=== PATIENT | female | born 2000 | race Caucasian/White ===

== ENCOUNTER 2019-09-21 19:13 | Emergency (ER) | payer BC ==
[~2019-09-21] VITALS: Ht 170.2 cm; Wt 72.2 kg
[2019-09-21 19:25] VITALS: BP 124/74
[2019-09-21] MEDS ORDERED: LIDOCAINE 1%/EPI 1:100,000 20 ML VIAL. ONE (19:34)
[2019-09-21] MEDS ORDERED: LIDOCAINE 1%/EPI 1:100,000 20 ML VIAL. IJ ONE (19:45)
--- NOTE | 2019-09-21 20:01 | PHYS DOC ---
Past History Past Medical History: No Pertinent History Past Surgical History: No Surgical History Alcohol Use: Occasionally Adult General Chief Complaint Chief Complaint: LACERATION/AVULSION HPI HPI 19-year-old female presents with left wrist laceration. The patient was cutting open with a knife when the knife slipped and she lacerated her left wrist p roximal to the anatomical snuffbox. It is about a 4 cm laceration. It is linear. Bleeding is controlled. Patient denies any other injuries. She has no difficulty with range of motion. She has full feeling distal to the wound. Her tetanus shot was updated 1 year ago. Review of Systems Review of Systems Constitutional: Denies fever or chills [] Eyes: Denies change in visual acuity, redness, or eye pain [] HENT: Denies nasal congestion or sore throat [] Respiratory: Denies cough or shortness of breath [] Cardiovascular: No additional information not addressed in HPI [] GI: Denies abdominal pain, nausea, vomiting, bloody stools or diarrhea [] : Denies dysuria or hematuria [] Musculoskeletal: Denies back pain or joint pain [] Integument: Laceration left wrist[] Neurologic: Denies headache, focal weakness or sensory changes [] Endocrine: Denies polyuria or polydipsia [] All other systems were reviewed and found to be within normal limits, except as documented in this note. Current Medications Current Medications Current Medications Medications (Trade) Dose Ordered Sig/Rai Start Time Stop Time Status Last Admin Dose Admin Lidocaine/ Epinephrine (Xylocaine 1%-Epi 1:100,000) 20 ml STK-MED ONCE 09/21/19 19:34 09/21/19 19:35 DC Allergies Allergies Allergies Coded Allergies Type Severity Reaction Last Updated Verified No Known Allergies Allergy Unknown 09/21/19 Yes Physical Exam Physical Exam Constitutional: Well developed, well nourished, no acute distress, non-toxic appearance. [] HENT: Normocephalic, atraumatic, bilateral external ears normal, oropharynx moist, no oral exudates, nose normal. [] Eyes: PERRLA, EOMI, conjunctiva normal, no discharge. [] Neck: Normal range of motion, no tenderness, supple, no stridor. [] Cardiovascular:Heart rate regular rhythm, no murmur [] Lungs & Thorax: Bilateral breath sounds clear to auscultation [] Abdomen: Bowel sounds normal, soft, no tenderness, no masses, no pulsatile masses. [] Skin: 4 cm linear laceration of the left wrist, neurovascularly intact distally, normal range of motion and sensation.[] Back: No tenderness, no CVA tenderness. [] Extremities: No tenderness, no cyanosis, no clubbing, ROM intact, no edema. [] Neurologic: Alert and oriented X 3, normal motor function, normal sensory function, no focal deficits noted. [] Psychologic: Affect normal, judgement normal, mood normal. [] Current Patient Data Vital Signs Vital Signs Date Time Temp Pulse Resp B/P (MAP) Pulse Ox O2 Delivery O2 Flow Rate FiO2 09/21/19 19:25 97.9 71 18 124/74 (91) 99 Room Air EKG EKG [] Radiology/Procedures Radiology/Procedures [] Course & Med Decision Making Course & Med Decision Making Pertinent Labs and Imaging studies reviewed. (See chart for details) The patient had a superficial laceration. It was a work. Sutures. See note below for details. The patient's tetanus is up-to-date. She is stable for discharge at this time. [] Dragon Disclaimer Dragon Disclaimer This electronic medical record was generated, in whole or in part, using a voice recognition dictation system. Laceration Repair Lac Repair Indication: 4cm centimeter linear laceration of the left wrist Procedure: I obtained verbal consent from the patient for suture repair. Laceration on the left wrist. Wound was thoroughly irrigated with saline under pressure. No foreign bodies were found. I anesthetized the wound with 3 mL of 1% lidocaine with epinephrine. Once good anesthesia was achieved, para. The wound with 7 interrupted sutures of 3-0 Ethilon suture. There was good skin approximation. Bleeding was controlled. A clean dressing was applied over the wound. Total repaired wound length: 4 cm Other Items: None The patient tolerated the procedure well Complications: None Departure Departure: Impression: Primary Impression: Laceration of left wrist Disposition: 01 HOME, SELF-CARE Condition: IMPROVED Referrals: NON,STAFF (PCP) Patient Instructions: Laceration Care, Adult, [id number], Sutured Wound Care, [id number] Problem Qualifiers Primary Impression: Laceration of left wrist Encounter type: initial encounter Qualified Codes: S61.512A - Laceration without foreign body of left wrist, initial encounter CONCEPCION MERLOS 12, 2020 20:01
== END 2019-09-21 20:09 | disposition home or self-care (01) ==
LOC: ER 19:13
DX: S61.512A Laceration without foreign body of left wrist, initial encounter (principal); W26.0XXA Contact with knife, initial encounter; Y93.89 Activity, other specified; Y92.89 Other specified places as the place of occurrence of the external cause; Y99.8 Other external cause status
CPT/HCPCS: 12002; 99282